=== PATIENT | male | born 1950 | race Caucasian/White ===

== ENCOUNTER 2016-10-23 00:39 | Emergency (ER) | payer MEDICARE, OTHER ==
[~2016-10-23] VITALS: Ht 180.3 cm; Wt 93.6 kg
[~2016-10-23 00:39] MED LIST: ASPIRIN EC81 MG PO; AZELASTINE; BUMETANIDE1 MG PO; COLCHICINE0.6 M2 PO; COREG6.25 MG PO; CYMBALTA60 MG PO; DELTASONE20 MG PO; DOC-Q-LAX1 TAB PO; DOXAZOSIN4 MG PO; FLEXERIL PO; FLUTICASONE50 MCG; HYDROXYCHLOR200 MG PO; LEVOTHYROXIN50 MCG PO; LIDODERM5 % EX; LISINOPRIL20 MG PO; LORATADINE10 M1 PO; LOSARTAN POTASS50 MG PO; MOTRIN400 MG/TAB PO; NAPROSYN500 MG PO; OMEPRAZOLE20 MG PO; ORENCIA125 MG/ML SC; PRAVASTATIN20 MG PO; PREDNISONE10 MG PO; PROAIR HFA IN; RESTASIS0.05 % OP; RESTORIL15 M1 PO; SYMBICORT1 AE1 IN; VICODIN1 TA1 PO; VITAMIN D50000 UNT PO; XANAX0.25 MG PO
[2016-10-23 02:37] LABS: HEMOGLOBIN 13.3 g/dl (14.0-18.0); IMMATURE GRANULOCYTES 0.1 % (0.0-1.0); MEAN CELL VOLUME 99.5 fL CALC (80.0-100.0); MEAN CORPUSCULAR HGB 33.9 pG CALC (26.0-32.0); MEAN CORPUSCULAR HGB CONC 34.1 g/L CALC (32.0-36.0); NEUT# 2.12 thou/uL (1.82-7.42); RED BLOOD COUNT 3.92 mill/uL (4.70-6.10); RED CELL DISTRI WIDTH 12.9 % (11.5-15.5)
[2016-10-23 02:47] LABS: ALBUMIN 3.7 g/dL (3.2-5.0); ALKALINE PHOSPHATASE 83 u/l (38-126); ANION GAP 14 (6-22 (CALC)); BILIRUBIN, TOTAL 0.4 mg/dL (0.0-1.4); BUN 16 mg/dL (8-23); BUN/CREATININE RATIO 27 (12-20 (CALC)); CALCIUM 9.5 mg/dL (8.4-10.2); CARBON DIOXIDE 27 mmol/l (22-30); CHLORIDE 101 mmol/l (95-108); CREATININE 0.6 mg/dL (0.7-1.3); GFR > 60 ML/MIN (>=60 (CALC)); GFR FOR AFR.AMER. > 60 ML/MIN (>=60 (CALC)); GLUCOSE 123 mg/dL (82-115); POTASSIUM 4.5 mmol/l (3.5-5.1); SGOT/AST 58 u/l (19-48); SGPT/ALT 61 u/l (11-66); SODIUM 137 mmol/l (137-146); TOTAL PROTEIN 6.5 g/dL (6.3-8.2)
[2016-10-23 04:23] LABS: URINE BILIRUBIN - DIPSTICK NEGATIVE (NEGATIVE); URINE BLOOD DIPSTICK NEGATIVE (NEGATIVE); URINE CLARITY CLEAR; URINE COLOR YELLOW; URINE GLUCOSE - DIPSTICK NEGATIVE (NEGATIVE); URINE KETONE NEGATIVE (NEGATIVE); URINE LEUK ESTERASE NEGATIVE (NEGATIVE); URINE NITRITE - DIPSTICK NEGATIVE (Negative); URINE PROTEIN - DIPSTICK NEGATIVE (NEG-TRACE); URINE SPECIFIC GRAVITY <=1.005; URINE UROBILINOGEN - DIPSTICK 0.2 E.U./dL (0.2)
[2016-10-23 07:10] VITALS: BP 124/61
== END 2016-10-23 07:11 ==
LOC: ED 00:39
PROVIDERS: Emergency Medicine
DX: R51 Headache (principal); J01.90 Acute sinusitis, unspecified; I10 Essential (primary) hypertension; E78.5 Hyperlipidemia, unspecified; J44.9 Chronic obstructive pulmonary disease, unspecified; I25.10 Atherosclerotic heart disease of native coronary artery without angina pectoris; I42.9 Cardiomyopathy, unspecified; Z98.890 Other specified postprocedural states

== ENCOUNTER 2017-04-05 21:17 | Emergency (ER) | payer MEDICARE, OTHER ==
[~2017-04-05] VITALS: Ht 180.3 cm; Wt 93.6 kg
[2017-04-05 21:37] VITALS: BP 171/87
== END 2017-04-05 21:45 | disposition home or self-care (01) ==
LOC: ED 21:17
PROC: 09C4XZZ Extirpation of Matter from Left External Auditory Canal, External Approach (ICD-10-PCS; principal; 2017-04-05)
DX: T16.2XXA Foreign body in left ear, initial encounter (principal); X58.XXXA Exposure to other specified factors, initial encounter; Y92.009 Unspecified place in unspecified non-institutional (private) residence as the place of occurrence of the external cause; H92.02 Otalgia, left ear

== ENCOUNTER 2018-03-04 17:42 | Inpatient (IN) | payer MEDICARE, OTHER ==
[~2018-03-04] VITALS: Ht 180.3 cm; Wt 87.7 kg
--- NOTE | 2018-03-04 17:56 | NUR ---
PATIENT IMMEDIATELY TO TREATMENT AREA AND PHYSICIAN AT BEDSIDE FOR EVAL
--- NOTE | 2018-03-04 18:10 | NUR ---
PT RELATES RT SIDED CHEST PAIN REPRODUCIBLE WITH PALPATION. VSS, IV FLUIDS INFUSING.
[2018-03-04 18:13] LABS: HEMATOCRIT 42.4 % (39.0-50.0); HEMOGLOBIN 14.4 g/dl (14.0-18.0); IMMATURE GRANULOCYTES 0.2 % (0.0-5.0); MEAN CELL VOLUME 102.7 fL CALC (80.0-100.0); MEAN CORPUSCULAR HGB 34.9 pG CALC (26.0-32.0); NEUT# 4.53 thou/uL (1.82-7.42); RED BLOOD COUNT 4.13 mill/uL (4.70-6.10); RED CELL DISTRI WIDTH 13.5 % (11.5-15.5)
--- NOTE | 2018-03-04 18:13 | NUR ---
PT ADAMENTLY REFUSING NITRO GTT AT THIS TIME D/T SEVERITY OF HYPOTENSION IN THE PAST.
--- NOTE | 2018-03-04 18:15 | NUR ---
PATIENT REFUSING NITRO DRIP
[2018-03-04 18:31] LABS: ANION GAP 13 (6-22 (CALC)); BUN 13 mg/dL (8-23); BUN/CREATININE RATIO 25 (12-20 (CALC)); CARBON DIOXIDE 28 mmol/l (22-30); CHLORIDE 99 mmol/l (95-108); CREATININE 0.5 mg/dL (0.7-1.3); GFR > 60 ML/MIN (>=60 (CALC)); GFR FOR AFR.AMER. > 60 ML/MIN (>=60 (CALC)); POTASSIUM 4.2 mmol/l (3.5-5.1); SODIUM 136 mmol/l (137-146)
--- NOTE | 2018-03-04 18:55 | NUR ---
REPORT TO ARTHUR CHAVEZRN
--- NOTE | 2018-03-04 19:13 | NUR ---
A/O M WITH FILTRATION SUPERVISOR ROSA COUGH X 1 WEEK RU CHEST PAINS EXAC BY COUGH W/P/D CLAIRE PUL;SES ARE STRONG AND EQUAL.
--- NOTE | 2018-03-04 19:48 | NUR ---
PHONE REPORT TO NURSE MARK
[2018-03-04 19:55] VITALS: BP 186/81
--- NOTE | 2018-03-04 19:55 | NUR ---
TO MS2 VIA STRETCHER ON TELE IN PAINFREE STABLE CONDITION
--- NOTE | 2018-03-04 19:55 | NUR ---
PT. ARRIVED TO THE FLOOR VIA STRETCHER ACCOMPANIED BY ER NURSE, AG, AND ; PT. SETTLED INTO BED WITH [place] PAINTER. B/P ELEVATED WITH SBP IN THE 180'S; WILL REASSESS; CALL LIGHT IS IN REACH.
--- NOTE | 2018-03-04 20:25 | NUR ---
ADMISSION COMPLETED AT THIS TIME; NO DISTRESS NOTED. DENIES PAIN; REASSESSED B/P 159/74; WILL CONTINUE TO MONITOR. IV SITE PATENT AND SL TO RAC; REVIEWED POC WITH PT; VERBALIZES UNDERSTANDING;LIST OF NIGHT TIME MEDS GIVEN TO THIS DIRECTOR PUBLIC SERVICE; WILL CALL MD FOR FURTHER ORDERS; SANDWICH AND PO FLUIDS PROVIDED; ENCOURAGED TO CALL FOR ANY NEEDS; CALL LIGHT IS IN REACH.
[2018-03-04 20:30] VITALS: BP 159/74
[2018-03-04 21:52] VITALS: BP 150/67
--- NOTE | 2018-03-04 21:52 | NUR ---
PT. C/O RIGHT SIDED CHEST PAIN 08/03; PT. DOES REPORT ALOT OF COUGHING AND INCREASE IN PAIN WITH COUGH AND INSPIRATION; VS OBTAINED AND B/P IS 150/67 AND HR 65; SPO2 94%; CALLED RT FOR STAT EKG AND PLACED ORDER FOR STAT TROPONIN;
--- NOTE | 2018-03-04 22:09 | NUR ---
NO CHANGE IN EKG; CALLED DR. CARR AND NOTIFIED HIM THAT PT. IS HAVING RIGHT SIDED CHEST PAIN AND THAT IT INCREASES WITH COUGH. ALSO NOTIFIED HIM OF C-XRAY RESULTS AND RECEIVED ORDERS FOR INCENTIVE SPIROMETER AND ONE TIME DOSE OF MORPHINE; WILL ADMINISTER WHEN PROFILED; UPDATED PT. AND .
--- NOTE | 2018-03-04 22:40 | NUR ---
PT. MEDICATED FOR A 6/10 RIGHT SIDED CHEST PAIN; WILL REASSESS;
--- NOTE | 2018-03-04 23:40 | NUR ---
PT. RESTING IN BED ON LEFT SIDE WITH EYES CLOSED; NO DISTRESS NOTED; RESP EVEN AND UNLABORED; CALL LIGHT IS IN REACH.
[2018-03-05 00:10] VITALS: BP 135/61
--- NOTE | 2018-03-05 01:42 | NUR ---
PT. C/O RIGHT SIDED PLEURAL/CHEST PAIN -09/02; CALLED DR. CARR AND NOTIFIED HIM OF THIS; NEW ORDERS RECEIVED AND TO BE CARRIED OUT;
--- NOTE | 2018-03-05 02:56 | NUR ---
PT. RESTING IN BED ON LEFT SIDE WITH EYES CLOSED; RESP EVEN AND UNLABORED; NO DISTRESS NOTED. CALL LIGHT IS IN REACH.
[2018-03-05 03:00] VITALS: BP 139/60
[2018-03-05 07:45] VITALS: BP 153/75
--- NOTE | 2018-03-05 07:59 | NUR ---
ASSESSMENT DONE .TELE IN PLACE. PT IS A&O X3. PT STATED DISCOMFORT IN RIGHT SIDE OF CHEST 03/05 BUT DENIES PAIN MEDICATION AT THIS TIME. PT HAS A COUGH. #20RAC THAT APPEARS HEALTHY. PT DENIES NEEDS AT THIS TIME. SAFETY PRECAUTIONS REINFORCED AND CALL LIGHT IN REACH.
[2018-03-05 11:28] VITALS: BP 130/74
--- NOTE | 2018-03-05 12:00 | NUR ---
PT IS EATING HIS LUNCH WITH NO S/S OF DISTRESS NOTED. PT STATED PIAN IN RIGHT SIDE CHEST IS / BUT DENIES PAIN MEDICATION AT THIS TIME. CALL LIGHT IN REACH.
[2018-03-05 15:20] VITALS: BP 151/76
--- NOTE | 2018-03-05 15:55 | NUR ---
PT IS SITTING IN THE SIDE OF THE BED VISITING WITH IN ROOM. MEDICATED PT WITH TYLENOL FOR A HEADACE 06/03. PT DENIES ANY OTHER NEEDS AT THIS TIME. CALL LIGHT IN REACH.
[2018-03-05 19:22] VITALS: BP 155/76
--- NOTE | 2018-03-05 21:48 | NUR ---
PT MEDICATED ORDERS PROVIDE AND ASSESSED. LUNG SOUNDS ARE CLEAR THROUGHOUT W/LEFT UPPER POST DIMINISHED/CLEAR SOUNDS. ABD SOFT NON-TENDER W/ACTIVE BOWEL SOUNDS. LOCX3, DENIES ANY PAIN/N/V OR SOB. CALL LIGHT AT BEDSIDE, WILL CONTINUE TO MONITOR.
[2018-03-06] VITALS (7 sets, daily range): BP systolic 136–185; BP diastolic 62–79
--- NOTE | 2018-03-06 01:20 | NUR ---
PT IN BED W/LIGHTS AND TV OFF. NO S/S OF DISTRESS, PT SLEEPING. CALL LIGHT IS AT SIDE.
--- NOTE | 2018-03-06 03:18 | NUR ---
PT APPEARS TO BE SLEEPING AT THIS TIME. NO S/O DISTRESS NOTED. CALL LIGHT AT SIDE.
[2018-03-06 05:11] LABS: HEMATOCRIT 39.3 % (39.0-50.0); HEMOGLOBIN 13.6 g/dl (14.0-18.0); IMMATURE GRANULOCYTES 0.3 % (0.0-5.0); MEAN CORPUSCULAR HGB CONC 34.6 g/L CALC (32.0-36.0); NEUT# 4.79 thou/uL (1.82-7.42); RED BLOOD COUNT 3.89 mill/uL (4.70-6.10); RED CELL DISTRI WIDTH 13.5 % (11.5-15.5)
[2018-03-06 05:32] LABS: ALKALINE PHOSPHATASE 104 u/l (38-126); AMYLASE < 30 u/l (30-110); ANION GAP 9 (6-22 (CALC)); BILIRUBIN, TOTAL 0.9 mg/dL (0.0-1.4); BUN 12 mg/dL (8-23); BUN/CREATININE RATIO 24 (12-20 (CALC)); CARBON DIOXIDE 26 mmol/l (22-30); CHLORIDE 106 mmol/l (95-108); CREATININE 0.5 mg/dL (0.7-1.3); GFR > 60 ML/MIN (>=60 (CALC)); GFR FOR AFR.AMER. > 60 ML/MIN (>=60 (CALC)); LIPASE 43 u/l (23-300); POTASSIUM 4.2 mmol/l (3.5-5.1); SGOT/AST 81 u/l (19-48); SODIUM 137 mmol/l (137-146)
[2018-03-06 05:34] LABS: ALBUMIN 2.7 g/dL (3.2-5.0); TOTAL PROTEIN 5.3 g/dL (6.3-8.2)
--- NOTE | 2018-03-06 08:00 | NUR ---
ASSESSMENT DONE. TELE IN PLACE. LUNGS SOUND DIMINISHED. PT IS A&O X3. PT DENIES PAIN AT THIS TIME. #22 RAC THAT APPEARS HEALTHY. SAFETY PRECAUTIONS REINFORCED AND CALL LIGHT IN REACH.
--- NOTE | 2018-03-06 12:00 | NUR ---
PT IS EATING HIS LUNCH WITH NO S/S OF DISTRESS NOTED. TELE IN PLACE. CALL LIGHT IN REACH.
--- NOTE | 2018-03-06 16:00 | NUR ---
PT IS RESTING ON HIS RIGHT SIDE. PT DENIES ANY NEEDS AT THIS TIME. CALL LIGHT IN REACH. IN ROOM. CALL LIGHT IN REACH.
--- NOTE | 2018-03-06 20:11 | NUR ---
PT MEDICATED ORDERS PROVIDE AND FOR PAIN /10 IN LUNG AREA. PT MEDICATED FOR COUGH AND ELEVATED BP AT THIS TIME. WILL REASSESS FOR PAIN AND BP. LUNG SOUNDS ARE CLEAR/DIM L.UPPER LOBE, ABD FIRM NON-TENDER W/ACTIVE BOWEL SOUNDS, TRACE EDEMA TO LOWER LEGS BILAT, SKIN APPEARS INTACT, NO OTHER S/O DISTRESS NOTED. WILL CONTINUE TO MONITOR AND PT ENCROUAGED TO CALL IF ANY NEEDS ARISE. CALL LIGHT AT BEDSIDE.
--- NOTE | 2018-03-06 23:30 | NUR ---
PT CALLED REQUESTED SLEEP AIDE/REPORTS HAVING DIFFICULTY SLEEPING/MEDICATED ORDERS PROVIDE. PT REPORTS PAIN AND COUGH RELIEF W/ROBITUSSIN AND PAIN MEDICATION PREVIOUSLY ADMINISTERED. PT DENIES ANY OTHER NEED FOR COMFORT MEASURES/ROOM TURNED COOLER/REQUEST. WILL CONTINUE TO MONITOR, AIDE IN OBTAINING V/S AT THIS TIME. CALL LIGHT AT BEDSIDE.
--- NOTE | 2018-03-07 02:25 | NUR ---
PT APPEARS TO BE SLEEPING, NO S/S OF DISTRESS NOTED. ROOM IS DARK,TV OFF AND CALL LIGHT AT BEDSIDE.
[2018-03-07 05:06] VITALS: BP 148/71
[2018-03-07 05:30] LABS: HEMATOCRIT 37.6 % (39.0-50.0); HEMOGLOBIN 12.9 g/dl (14.0-18.0); IMMATURE GRANULOCYTES 0.2 % (0.0-5.0); MEAN CELL VOLUME 100.8 fL CALC (80.0-100.0); MEAN CORPUSCULAR HGB 34.6 pG CALC (26.0-32.0); MEAN CORPUSCULAR HGB CONC 34.3 g/L CALC (32.0-36.0); NEUT# 3.96 thou/uL (1.82-7.42); RED BLOOD COUNT 3.73 mill/uL (4.70-6.10); RED CELL DISTRI WIDTH 13.2 % (11.5-15.5)
[2018-03-07 05:48] LABS: ALBUMIN 2.6 g/dL (3.2-5.0); ALKALINE PHOSPHATASE 92 u/l (38-126); ANION GAP 11 (6-22 (CALC)); BILIRUBIN, TOTAL 0.7 mg/dL (0.0-1.4); BUN 6 mg/dL (8-23); BUN/CREATININE RATIO 13 (12-20 (CALC)); CARBON DIOXIDE 24 mmol/l (22-30); CHLORIDE 106 mmol/l (95-108); CREATININE 0.4 mg/dL (0.7-1.3); GFR > 60 ML/MIN (>=60 (CALC)); GFR FOR AFR.AMER. > 60 ML/MIN (>=60 (CALC)); MAGNESIUM 1.9 mg/dL (1.6-2.3); POTASSIUM 4.1 mmol/l (3.5-5.1); SGOT/AST 45 u/l (19-48); SODIUM 136 mmol/l (137-146); TOTAL PROTEIN 5.2 g/dL (6.3-8.2)
[2018-03-07 08:00] VITALS: BP 125/67
--- NOTE | 2018-03-07 08:39 | NUR ---
PT IS SITTING IN RECLINER. ASSESSMENT DONE. TELE IN PLACE. PT DENIES PAIN AT THIS TIME. #22 RW THAT APPEAR HEALTHY. SAFETY PRECAUTIONS REINFORCED AND CALL LIGHT IN REACH.
[2018-03-07 10:51] LABS: URINE BILIRUBIN - DIPSTICK NEGATIVE (NEGATIVE); URINE BLOOD DIPSTICK NEGATIVE (NEGATIVE); URINE COLOR YELLOW; URINE GLUCOSE - DIPSTICK NEGATIVE (NEGATIVE); URINE KETONE NEGATIVE (NEGATIVE); URINE LEUK ESTERASE NEGATIVE (NEGATIVE); URINE NITRITE - DIPSTICK NEGATIVE (Negative); URINE PH 5.5 (4.5-8.0); URINE PROTEIN - DIPSTICK NEGATIVE (NEG-TRACE); URINE SPECIFIC GRAVITY <=1.005; URINE UROBILINOGEN - DIPSTICK 0.2 E.U./dL (0.2)
[2018-03-07 11:28] VITALS: BP 166/82
--- NOTE | 2018-03-07 12:07 | NUR ---
PT IS SITTING IN THE RECLINER. DR. CARMONA IN ROOM TO ASSESS PT. NOTIFIED RE: P-51 AND BP 166/82 . IN ROOM. CALL LIGHT IN REACH.
[2018-03-07 15:06] VITALS: BP 123/66
--- NOTE | 2018-03-07 16:04 | NUR ---
PT IS RESTING IN RECLINER WITH NO S/S OF DISTRESS NOTED. TELE IN PLACE AND CALL LIGHT IN REACH.
[2018-03-07 19:35] VITALS: BP 154/83
--- NOTE | 2018-03-07 19:50 | NUR ---
PT WAS IN RECLINER, NO S/O DISTRESS NOTED, PT DENIES PAIN OR COUGH AT THIS TIME. DENIES SOB. PT SWABBED FOR FLU AND STREP AND ASSESSMENT COMPLETED AT THIS TIME. LUNG SOUNDS CLEAR/DIM IN RUL, ABD SOFT NON-TENDER, LOCX4, SKIN AND NEURO'S INTACT. PT DENIES ANY OTHER ASSISTANCE AT THIS TIME. CALL LIGHT AT SIDE AND PT ENCOURAGED TO CALL ANY NEEDS ARISE.
[2018-03-08] VITALS (9 sets, daily range): BP systolic 133–187; BP diastolic 69–83
--- NOTE | 2018-03-08 00:15 | NUR ---
PT WAS SLEEPING WE ENTERED THE ROOM. PT ASSISTED TO RESTROOM AND BACK TO BED. NO S/O DISTRESS, PT DENIES ANY NEEDS. V/S ASSESSED AND ANTIBIOTIC IV THERAPY ADMINISTERED. CALL LIGHT AT BEDSIDE.
--- NOTE | 2018-03-08 03:55 | NUR ---
PT MEDICATED FOR COUGH AND IV SITE FLUSHED/PATENT/APPEARS HEALTHY. PT DENIES ANY OTHER NEEDS AT THIS TIME. CALL LIGHT AT BEDSIDE.
--- NOTE | 2018-03-08 07:00 | NUR ---
SHIFT REPORT, PT AWAKE ALERT AND ORIENTED, NO C/O DISCOMFORT, REQUESTING DOUBLE MEAL AND FRUIT SERVING, REQUEST ADDRESSED, WILL CONTINUE TO MONITOR.
--- NOTE | 2018-03-08 12:49 | NUR ---
RELAXING IN ROOM, MEDICAL TEAM ROUNDED AND DISCUSSED PLAN OF CARE, ALL NEEDS ADDRESSED.
--- NOTE | 2018-03-08 16:51 | NUR ---
SLEEPING IN BED AT THIS TIME, NO SIGN DISCOMFORT, CALL ARREAGA IN REACH.
--- NOTE | 2018-03-08 18:17 | NUR ---
MESSAGE LEFT ON DR CARMONA'S PHONE CONCERNING PT'S BP
--- NOTE | 2018-03-08 18:31 | NUR ---
DR CARMONA RETURNED CALL, GAVE ORDERS.
--- NOTE | 2018-03-08 19:30 | NUR ---
PT IS STANDING IN ROOM, JUST COMING FROM RESTROOM. POC DISCUSSED W/PT, NO S/O DISTRESS NOTED. CALL LIGHT AT BEDSIDE AND PT ENCOURAGED TO CALL IF ANY NEEDS ARISE.
--- NOTE | 2018-03-08 21:00 | NUR ---
PHYSICIAN NOTIFIED OF LOW HR AND ELEVATED BP, NEW ORDERS RECEIVED.
--- NOTE | 2018-03-09 | NUR ---
PT MEDICATED W/IV ANTIBIOTICS AND SOMETHING TO AIDE SLEEP/REQUEST. V/S HAVE BEEN ASSESSED PRIOR. WATER REPLENISHED, PT DENIES ANY OTHER NEEDS AT THIS TIME.
--- NOTE | 2018-03-09 03:12 | NUR ---
PT SLEEPING AT THIS TIME, NO S/O DISTRESS NOTED. CALL LIGHT W/IN REACH.
[2018-03-09 04:58] VITALS: BP 132/65
--- NOTE | 2018-03-09 05:59 | NUR ---
PT MEDICATED ORDERS PROVIDE, IV ANTIBIOTIC THERAPY RUNNING AT THIS TIME/SITE APPEARS HEALTHY. PT MEDICATED FOR COUGH AND RESPIRATORY IS IN W/PT FOR TREATMENT. DENIES ANY OTHER NEEDS.
[2018-03-09 06:00] LABS: HEMOGLOBIN 13.1 g/dl (14.0-18.0); IMMATURE GRANULOCYTES 0.2 % (0.0-5.0); MEAN CELL VOLUME 101.3 fL CALC (80.0-100.0); MEAN CORPUSCULAR HGB 34.9 pG CALC (26.0-32.0); MEAN CORPUSCULAR HGB CONC 34.5 g/L CALC (32.0-36.0); NEUT# 1.64 thou/uL (1.82-7.42); RED BLOOD COUNT 3.75 mill/uL (4.70-6.10); RED CELL DISTRI WIDTH 13.2 % (11.5-15.5)
[2018-03-09 06:17] LABS: ANION GAP 11 (6-22 (CALC)); BUN 8 mg/dL (8-23); BUN/CREATININE RATIO 17 (12-20 (CALC)); CARBON DIOXIDE 25 mmol/l (22-30); CHLORIDE 108 mmol/l (95-108); CREATININE 0.5 mg/dL (0.7-1.3); GFR > 60 ML/MIN (>=60 (CALC)); GFR FOR AFR.AMER. > 60 ML/MIN (>=60 (CALC)); MAGNESIUM 1.8 mg/dL (1.6-2.3); POTASSIUM 3.9 mmol/l (3.5-5.1); SODIUM 140 mmol/l (137-146)
--- NOTE | 2018-03-09 07:00 | NUR ---
Received report from nurse Costa pt sitting in bed, no discmoforts noted at this time, even unlabored breathing call light at reach
[2018-03-09 07:30] VITALS: BP 155/73
--- NOTE | 2018-03-09 08:00 | NUR ---
PATIENT ALERT AND ORIENTED, AMULATORY, DENIES PAIN OR DISCOMFORT AT THIS TIME, OCCASIONAL COUGHING SPUTUM GREENISH IN COLOR STATED BY PATIENT. EVEN UNLABORED BREATHING CALL LIGHT AT REACH
[2018-03-09 11:25] VITALS: BP 159/76
--- NOTE | 2018-03-09 11:50 | NUR ---
Seen on rounds by , orders made for discharge, pt with family, denies pain. call light within reach
[2018-03-09] MEDS ORDERED: CIPROFLOXACIN500 M1 PO (13:07)
[2018-03-09] MEDS ORDERED: TUSSIONEX1 ML PO (13:07)
--- NOTE | 2018-03-09 14:45 | NUR ---
Discharge instructions given. Patient verbalizes understanding of same. Discharged in stable condition via Wheelchair to Home with family. All belongings sent with pt.
== END 2018-03-09 14:45 | disposition home or self-care (01) | DRG 178 ==
LOC: ED 17:42 → ED-I 17:50 → ED 19:13 → MS2 19:14
PROVIDERS: Family Medicine; Internal Medicine Nephrology; Nurse Practitioner Family; ADMIT Internal Medicine; ATTEND Internal Medicine
DX: J15.1 Pneumonia due to Pseudomonas (principal); I51.81 Takotsubo syndrome; I10 Essential (primary) hypertension; M06.9 Rheumatoid arthritis, unspecified; M35.00 Sjogren syndrome, unspecified; I25.10 Atherosclerotic heart disease of native coronary artery without angina pectoris; I44.7 Left bundle-branch block, unspecified; E89.0 Postprocedural hypothyroidism; R91.8 Other nonspecific abnormal finding of lung field; Z86.711 Personal history of pulmonary embolism; Z90.411 Acquired partial absence of pancreas; Z90.81 Acquired absence of spleen; Z79.899 Other long term (current) drug therapy
CPT/HCPCS: G0378; J1650

== ENCOUNTER → 2018-05-13 | Outpatient (REF) | payer MEDICARE, OTHER ==
[~2018-05-13] MED LIST changes: +CIPROFLOXACIN500 M1 PO; +MONTELUKAST SOD10 MG PO; +TUSSIONEX1 ML PO
[2018-05-13 10:53] VITALS: BP 143/43
== END ==
LOC: FIORUCCI 10:15
PROVIDERS: ATTEND Surgery
DX: K21.9 Gastro-esophageal reflux disease without esophagitis (principal); Z86.010 Personal history of colon polyps

== ENCOUNTER 2018-06-02 07:45 | Day surgery (SDC) | payer MEDICARE, OTHER ==
[~2018-06-02 07:45] MED LIST changes: +ALLERGY NA50 MCG/ACT; +AZELASTINE0.1 %; -FLUTICASONE50 MCG; +MITIGARE0.6 MG PO
[2018-06-04 10:24] VITALS: BP 148/85
== END 2018-06-02 10:50 | disposition home or self-care (01) ==
LOC: ENDO 07:45 → ORM 09:00 → ENDO 10:50
PROVIDERS: ATTEND Surgery
PROC: 0DBK8ZX Excision of Ascending Colon, Via Natural or Artificial Opening Endoscopic, Diagnostic (ICD-10-PCS; principal; 2018-06-02)
PROC: 0DBN8ZX Excision of Sigmoid Colon, Via Natural or Artificial Opening Endoscopic, Diagnostic (ICD-10-PCS; 2018-06-02)
PROC: 0DBH8ZX Excision of Cecum, Via Natural or Artificial Opening Endoscopic, Diagnostic (ICD-10-PCS; 2018-06-02)
PROC: 0DJ08ZZ Inspection of Upper Intestinal Tract, Via Natural or Artificial Opening Endoscopic (ICD-10-PCS; 2018-06-02)
DX: Z12.11 Encounter for screening for malignant neoplasm of colon (principal); D12.0 Benign neoplasm of cecum; D12.2 Benign neoplasm of ascending colon; D12.5 Benign neoplasm of sigmoid colon; K63.5 Polyp of colon; K64.8 Other hemorrhoids; K64.4 Residual hemorrhoidal skin tags; K21.9 Gastro-esophageal reflux disease without esophagitis; K29.70 Gastritis, unspecified, without bleeding; K29.80 Duodenitis without bleeding; M35.00 Sjogren syndrome, unspecified; I10 Essential (primary) hypertension; M06.9 Rheumatoid arthritis, unspecified; I42.9 Cardiomyopathy, unspecified; Z86.010 Personal history of colon polyps; Z79.899 Other long term (current) drug therapy

== ENCOUNTER 2018-10-20 19:33 | Emergency (ER) | payer MEDICARE, OTHER ==
[~2018-10-20] VITALS: Ht 180.3 cm; Wt 84.5 kg
[~2018-10-20 19:33] MED LIST changes: +PREVACID30 M3 PO
[2018-10-20] MEDS ORDERED: PROTONIX40 M2 PO (20:00)
[2018-10-20] MEDS ORDERED: CARAFATE1 GM PO (20:01)
[2018-10-20 21:00] VITALS: BP 170/78
== END 2018-10-20 21:00 | disposition home or self-care (01) ==
LOC: ED 19:33
DX: T16.1XXA Foreign body in right ear, initial encounter (principal); X58.XXXA Exposure to other specified factors, initial encounter; Y92.009 Unspecified place in unspecified non-institutional (private) residence as the place of occurrence of the external cause

== ENCOUNTER 2019-06-21 | Emergency (ER) | payer MEDICARE, OTHER ==
[~2019-06-21] MED LIST changes: +CARAFATE1 GM PO; +COREG3.125 MG PO; -COREG6.25 MG PO; +LEVOTHYROXIN150 MCG PO; -LEVOTHYROXIN50 MCG PO; +PROTONIX40 M2 PO
[2019-06-21 15:38] LABS: HEMATOCRIT 42.1 % (39.0-50.0); HEMOGLOBIN 14.3 g/dl (14.0-18.0); IMMATURE GRANULOCYTES 0.1 % (0.0-5.0); MEAN CELL VOLUME 96.3 fL CALC (80.0-100.0); MEAN CORPUSCULAR HGB 32.7 pG CALC (26.0-32.0); NEUT# 2.3 thou/uL (1.82-7.42); RED BLOOD COUNT 4.37 mill/uL (4.70-6.10); RED CELL DISTRI WIDTH 13.9 % (11.5-15.5)
[2019-06-21] MEDS ORDERED: PANTOPRAZOLE SO20 M1 PO (15:38)
[2019-06-21] MEDS ORDERED: LEVOTHYROXIN50 MCG PO (15:45)
[2019-06-21 16:03] LABS: ALBUMIN 3.8 g/dL (3.2-5.0); ALKALINE PHOSPHATASE 62 u/l (38-126); ANION GAP 10 (6-22 (CALC)); BILIRUBIN, TOTAL 0.6 mg/dL (0.0-1.4); BUN 16 mg/dL (8-23); BUN/CREATININE RATIO 32 (12-20 (CALC)); CARBON DIOXIDE 27 mmol/l (22-30); CHLORIDE 103 mmol/l (95-108); CREATININE 0.5 mg/dL (0.7-1.3); GFR > 60 ML/MIN (>=60 (CALC)); GFR FOR AFR.AMER. > 60 ML/MIN (>=60 (CALC)); SGOT/AST 48 u/l (19-48); SODIUM 135 mmol/l (137-146); TOTAL PROTEIN 6.7 g/dL (6.3-8.2)
[2019-06-21 16:07] LABS: ACT PARTIAL THROMBO TIME 24.7 SECONDS (20.0-32.5); INTERNATIONAL NORMALIZED RATIO 1.1 RATIO (0.7-1.3); PROTHROMBIN TIME 11.2 SECONDS (9.0-12.5)
[2019-06-21] MEDS ORDERED: TRAMADOL HYDROC50 MG PO (17:11)
[2019-06-21] MEDS ORDERED: ONDANSETRON4 MG PO (17:11)
== END 2019-06-21 17:25 | disposition home or self-care (01) ==
DX: G43.909 Migraine, unspecified, not intractable, without status migrainosus (principal); I10 Essential (primary) hypertension

== ENCOUNTER 2019-08-01 23:02 | Observation (INO) | payer MEDICARE, OTHER ==
[~2019-08-01] VITALS: Ht 180.3 cm; Wt 88.5 kg
[~2019-08-01 23:02] MED LIST changes: +LEVOTHYROXIN50 MCG PO; +ONDANSETRON4 MG PO; +PANTOPRAZOLE SO20 M1 PO; +TRAMADOL HYDROC50 MG PO
--- NOTE | 2019-08-01 23:02 | NUR ---
PATIENT TO ROOM 10 VIA EMS STRETCHER. PLACED ON MONITOR, TRIAGE COMPLETED AT BEDSIDE.
[2019-08-01] MEDS ORDERED: TOPIRAMATE ER25 MG PO (23:24)
[2019-08-01] MEDS ORDERED: PROMETHAZINE12.5 M4 PO (23:24)
--- NOTE | 2019-08-01 23:32 | NUR ---
PATIENT RESTING QITH AT BEDSIDE, C/O LEFT CHEST PAIN 4/10 AND HEAD PAIN 8/10, PATIENT MEDICATED FOR ELEVATED BLOOD PRESSURE, NO S/S OF DISTRESS, RESPIRATIONS EVEN AND UNLABORED.
[2019-08-01 23:38] LABS: HEMATOCRIT 42.6 % (39.0-50.0); HEMOGLOBIN 14.5 g/dl (14.0-18.0); IMMATURE GRANULOCYTES 0.1 % (0.0-5.0); MEAN CELL VOLUME 96.6 fL CALC (80.0-100.0); MEAN CORPUSCULAR HGB 32.9 pG CALC (26.0-32.0); NEUT# 2.7 thou/uL (1.82-7.42); RED BLOOD COUNT 4.41 mill/uL (4.70-6.10); RED CELL DISTRI WIDTH 14.4 % (11.5-15.5)
[2019-08-01 23:50] LABS: ALBUMIN 3.8 g/dL (3.2-5.0); ALKALINE PHOSPHATASE 67 u/l (38-126); AMYLASE 58 u/l (30-110); BILIRUBIN, TOTAL 0.4 mg/dL (0.0-1.4); BUN 14 mg/dL (8-23); BUN/CREATININE RATIO 33 (12-20 (CALC)); CARBON DIOXIDE 27 mmol/l (22-30); CHLORIDE 102 mmol/l (95-108); CREATININE 0.4 mg/dL (0.7-1.3); GFR > 60 ML/MIN (>=60 (CALC)); GFR FOR AFR.AMER. > 60 ML/MIN (>=60 (CALC)); LIPASE 62 u/l (23-300); SGOT/AST 43 u/l (19-48); SODIUM 136 mmol/l (137-146); TOTAL PROTEIN 6.8 g/dL (6.3-8.2)
[2019-08-01 23:51] LABS: ANION GAP 10 (6-22 (CALC)); POTASSIUM 3.1 mmol/l (3.5-5.1)
[2019-08-01 23:57] LABS: ACT PARTIAL THROMBO TIME 24.7 SECONDS (20.0-32.5); D-DIMER 0.45 mg/L (0.19-0.60); PROTHROMBIN TIME 10.7 SECONDS (9.0-12.5)
[2019-08-02 00:02] LABS: MYOGLOBIN 143 ng/mL (0 - 121)
--- NOTE | 2019-08-02 00:17 | NUR ---
Patient resting quietly, c/o chest pain (4) and head pain (8). patient medicated for elevated blood pressure, at bedside.
--- NOTE | 2019-08-02 00:46 | NUR ---
patient awaiting inpatient bed, resting quietly, AT BEDSIDE.
--- NOTE | 2019-08-02 00:56 | NUR ---
PATIENT PLACED ON PORTABLE NAVY DIVER
--- NOTE | 2019-08-02 01:01 | NUR ---
HAND OFF REPORT GIVEN TO JOANNA PATTERSON PATIENT TRANSPORTED TO INPATIENT BED BY WHEELCHAIR. AAOX3 ON PORTABLE TELE.
--- NOTE | 2019-08-02 01:20 | NUR ---
PT ARRIVED TO THE MED SURG UNIT VIA WC ACCOMPANIED BY ED NURSE. PT APPEARS STABLE AT THIS TIME. DENIES PAIN AT THIS TIME. PT SELF AMBULATED TO STANDING SCALE AND TO THE BED. V/S ASSESSED AND PT ORIENTED TO THE ROOM, CALL SYSTEM, LIGHTS, BED AND TV.
[2019-08-02 01:24] VITALS: BP 172/75
--- NOTE | 2019-08-02 01:37 | NUR ---
ASSESSMENT COMPLETED AT THIS TIME. PT DENIES CP/N/V OR DIZZINESS. SKIN INTACT, NEURO'S INTACT. LOCX4. NO S/O DISTRESS NOTED. PT ORIENTED TO CALL LIGHT, TV AND BED. PT PROVIDED SNACK AND ICEWATER FOR COMFORT MEASURES. DENIES ANY OTHER NEEDS. POC HAS BEEN REVIEWED W/PT.
--- NOTE | 2019-08-02 01:58 | NUR ---
PT MEDICATED ORDERS PROVIDE W/LOVONOX. PT TOLERATED WELL. LOOKING AT CELLPHONE W/LIGHTS ON.
[2019-08-02 02:23] VITALS: BP 144/65
[2019-08-02 03:44] VITALS: BP 157/72
[2019-08-02 04:58] LABS: CHOLESTEROL HDL RATIO 3.7 (<4.4 (CALC))
--- NOTE | 2019-08-02 07:00 | NUR ---
REPORT RECEIVED FROM JOANNA PATTERSON;PT APPEARS TO BE SLEEPING IN SUPINE POSITION;NO S/S OF DISTRESS NOTED;RESPIRATIONS APPEAR EVEN AND UNLABORED ON RA;TELE MONITORING IN PLACE;ALL SAFETY PRECAUTIONS NOTED WITH BED IN THE LOWEST POSITION AND CALL LIGHT IN REACH;WILL CONTINUE TO MONITOR
[2019-08-02 08:08] VITALS: BP 155/81
--- NOTE | 2019-08-02 08:10 | NUR ---
PT RESTING IN SEMI FOWLERS POSITION EATING BREAKFAST,A&O X3;VS OBTAINED AND ASSESSMENT COMPLETED;PT REPORTS HEADACHE PAIN RATING 7/10 ON THE PAIN SCALE WITH ASSOCIATED NAUSEA, PT TO BE MEDICATED WITH PRN TYLENOL 650MG PO AND ZOFRAN 4MG IVP PER ORDER;RESPIRATIONS EVEN AND UNLABORED ON RA,CLEAR LUNG SOUNDS;ABDOMEN SOFT ON PALPATION AND ACTIVE IN ALL 4 QUADRANTS, PT REPORTS INCREASE IN CONSTIPATION AND REQUEST LAXATIVE LAST BM 08/01/19;PT TO BE MEDICATED WITH PRN MOM;TRACE EDEMA NOTED TO BLE,ENCOURAGED ELEVATION;EMS #20G TO RIGHT HAND FLUSHED AND PATENT,SITE APPEARS HEALTHY;TELE MONITORING IN PLACE;FRESH WATER PROVIDED;PT DENIES ANY ADDITIONAL NEEDS AT THIS TIME AND IS ENCOURAGED TO CALL FOR ASSISTANCE IF NEEDED;CALL LIGHT IN REACH;WILL CONTINUE TO MONITOR
--- NOTE | 2019-08-02 08:40 | NUR ---
LAB AT BEDSIDE
[2019-08-02 11:15] VITALS: BP 148/75
--- NOTE | 2019-08-02 11:20 | NUR ---
ALL DISCHARGE INSTRUCTIONS PROVIDED AT THIS TIME;PT INSTRUCTED TO F/U WITH AND HIS NEUROLOGIST,MONITOR BLOOD PRESSURE AND DECREASE NORTRIPTYLINE DOSE,PT AND SPOUSE VERBALIZE UNDERSTANDING;IV SITE REMOVED WITH CATHTETER INTACT AND TELE MONITORING D/C;PT DENIES ANY ADDITIONAL NEEDS AT THIS TIME;WHEELCHAIR TO BE PROVIDED FOR D/C HOME;SPOUSE TO TRANSPORT PT HOME.
--- NOTE | 2019-08-02 11:30 | NUR ---
Discharge instructions given. Patient verbalizes understanding of same. Discharged in stable condition via Wheelchair to Home with spouse. All belongings sent with pt. PT TRANSPORTED TO [facility] IN STABLE CONDITION VIA WHEELCHAIR ACCOMPANIED BY ABELARDO FARRIS AND SPOUSE.
== END 2019-08-02 11:30 | disposition home or self-care (01) ==
LOC: ED 23:02 → ED-I 08-02 00:17 → ED 08-02 00:30 → ED-I 08-02 00:31 → MS2 08-02 00:31
PROVIDERS: Family Medicine; ADMIT Internal Medicine; ATTEND Internal Medicine
DX: R07.9 Chest pain, unspecified (principal); I10 Essential (primary) hypertension; G43.909 Migraine, unspecified, not intractable, without status migrainosus; E87.6 Hypokalemia; I51.81 Takotsubo syndrome; I44.7 Left bundle-branch block, unspecified; M06.9 Rheumatoid arthritis, unspecified; E03.9 Hypothyroidism, unspecified; Z20.828 Contact with and (suspected) exposure to other viral communicable diseases
CPT/HCPCS: G0378; J1650

== ENCOUNTER 2019-08-08 07:14 | Inpatient (IN) | payer MEDICARE, OTHER ==
[~2019-08-08] VITALS: Ht 180.3 cm; Wt 89.0 kg
[~2019-08-08 07:14] MED LIST changes: +PROMETHAZINE12.5 M4 PO; +TOPIRAMATE ER25 MG PO
--- NOTE | 2019-08-08 07:15 | NUR ---
PT AMBULATED TO ROOM WITH STEADY GAIT FOR BEDSIDE TRIAGE
--- NOTE | 2019-08-08 07:25 | NUR ---
PT CHANGED TO GOWN. MONITORS APPLIED. AO X 3. SKIN PINK WARM AND DRY. REPORTS ABDOMINAL PAIN AND BLOATING SINCE THRURS, WORSE TODAY. ABD DISTENDED AND TENDER, ACTIVE BOWEL SOUNDS.
[2019-08-08 07:57] LABS: HEMATOCRIT 40.8 % (39.0-50.0); IMMATURE GRANULOCYTES 0.3 % (0.0-5.0); MEAN CELL VOLUME 97.1 fL CALC (80.0-100.0); MEAN CORPUSCULAR HGB 33.3 pG CALC (26.0-32.0); MEAN CORPUSCULAR HGB CONC 34.3 g/dL CAL (32.0-36.0); NEUT# 3.77 thou/uL (1.82-7.42); RED BLOOD COUNT 4.2 mill/uL (4.70-6.10); RED CELL DISTRI WIDTH 14.2 % (11.5-15.5)
[2019-08-08] MEDS ORDERED: TOPAMAX25 MG PO (07:58)
[2019-08-08] MEDS ORDERED: VALPROIC ACD250 M3 PO (07:58)
[2019-08-08] MEDS ORDERED: POTASSIUM CHLO10 MEQ PO (07:59)
[2019-08-08] MEDS ORDERED: KETOROLAC10 MG PO (08:00)
--- NOTE | 2019-08-08 08:18 | NUR ---
PT MEDICATED FOR PAIN, NAUSEA AND PROPHYLACTIC MEDS FOR IV CONTRAST GIVEN. IV INFUSING
[2019-08-08 08:22] LABS: ALBUMIN 3.8 g/dL (3.2-5.0); ALKALINE PHOSPHATASE 69 u/l (38-126); AMYLASE 55 u/l (30-110); ANION GAP 10 (6-22 (CALC)); BILIRUBIN, TOTAL 0.8 mg/dL (0.0-1.4); BUN 14 mg/dL (8-23); BUN/CREATININE RATIO 26 (12-20 (CALC)); CARBON DIOXIDE 27 mmol/l (22-30); CHLORIDE 102 mmol/l (95-108); CREATININE 0.5 mg/dL (0.7-1.3); GFR > 60 ML/MIN (>=60 (CALC)); GFR FOR AFR.AMER. > 60 ML/MIN (>=60 (CALC)); LIPASE 37 u/l (23-300); POTASSIUM 3.9 mmol/l (3.5-5.1); SGOT/AST 35 u/l (19-48); SODIUM 135 mmol/l (137-146)
--- NOTE | 2019-08-08 08:55 | NUR ---
PT RESTING ON STRETCHER. AT BEDSIDE. PAIN3/10
[2019-08-08 09:30] LABS: URINE BILIRUBIN - DIPSTICK NEGATIVE (NEGATIVE); URINE BLOOD DIPSTICK NEGATIVE (NEGATIVE); URINE COLOR YELLOW; URINE GLUCOSE - DIPSTICK NEGATIVE (NEGATIVE); URINE KETONE NEGATIVE (NEGATIVE); URINE LEUK ESTERASE NEGATIVE (NEGATIVE); URINE NITRITE - DIPSTICK NEGATIVE (Negative); URINE PROTEIN - DIPSTICK NEGATIVE (NEG-TRACE); URINE SPECIFIC GRAVITY <=1.005; URINE UROBILINOGEN - DIPSTICK 0.2 E.U./dL (0.2)
--- NOTE | 2019-08-08 09:56 | NUR ---
PT RESTING ON STRETCHER AWAITING RESULTS
--- NOTE | 2019-08-08 11:00 | NUR ---
PT RESTING ON STRETCHER, AT BEDSIDE. WAITING RESULTS
--- NOTE | 2019-08-08 12:06 | NUR ---
MED SURG UNABLE TO TAKE REPORT AT THIS TIME
--- NOTE | 2019-08-08 12:30 | NUR ---
REPORT GIVEN TO DORETHA MARSHALLOVEREDGE MACHINE OPERATOR
--- NOTE | 2019-08-08 12:35 | NUR ---
PT TAKEN VIA WHEELCHAIR, TELEMETRY IN PLACE TO MED SURG
--- NOTE | 2019-08-08 12:37 | NUR ---
PT ARRIVED TO MS2 VIA WHEELCHAIR, PT ALERT AND ORIENTED X3, AMBULATORY. ORIENTED PT TO ROOM AND CALL LIGHT, DISCUSSED POC, CLEAR LIQUID DIET PROVIDED, ASSESSMENT COMPLETED, CALL LIGHT IN REACH,CONTINUE TO MONITOR.
[2019-08-08 12:45] VITALS: BP 185/91
--- NOTE | 2019-08-08 13:54 | NUR ---
PT ARRIVED WITH ELEVATED BP, SMASH HAND NOTIFIED AND ORDER PLACED. PT MEDICATED PER APR. PRN APRESOLINE ENTERED IF BP MEDS NOT EFFECTIVE. PT AGREES, CALL LIGHT IN REACH,CONTINUE TO MONITOR.
[2019-08-08 15:05] VITALS: BP 157/68
--- NOTE | 2019-08-08 17:44 | NUR ---
PT EATING DINNER, NO SIGNS OF DISTRESS NOTED, RESP EVEN AND UNLABORED. CALL LIGHT IN REACH,CONTINUE TO MONITOR.
--- NOTE | 2019-08-08 19:14 | NUR ---
REPORT FROM RODRIGO PACE. PT NOTED RESTING IN BED. NO APPARENT DISTRESS NOTED. PT MEDICATED PRIOR TO SHIFT REPORT FOR HEADACHE AND NAUSEA. IV SITE APPEARS HEALTHY. DISCUSSED POC. PT VERBALIZED UNDERSTANDING. CALL LIGHT WITHIN REACH. WILL CONTINUE TO MONITOR.
[2019-08-08 19:29] VITALS: BP 150/71
--- NOTE | 2019-08-08 21:25 | NUR ---
POPSICLE PROVIDED UPON REQUEST. PT TOLERATING WELL. DENIES ANY NAUSEA AT THIS TIME.
--- NOTE | 2019-08-08 21:30 | NUR ---
PT OOB TO SHOWER AT THIS TIME.
--- NOTE | 2019-08-08 23:10 | NUR ---
PT RESTING IN BED. NO APPARENT DISTRESS NOTED. DENIES ANY CURRENT WANTS OR NEEDS. CALL LIGHT WITHIN REACH. WILL CONTINUE TO MONITOR.
[2019-08-09] VITALS (7 sets, daily range): BP systolic 116–160; BP diastolic 57–73
--- NOTE | 2019-08-09 03:50 | NUR ---
PT RESTING IN BED WITH EYES CLOSED. NO APPARENT DISTRESS NOTED. INFO ANALYST IN PLACE. CALL LIGHT WITHIN REACH. WILL CONTINUE TO MONITOR.
[2019-08-09 05:11] LABS: HEMATOCRIT 36.8 % (39.0-50.0); HEMOGLOBIN 12.4 g/dl (14.0-18.0); IMMATURE GRANULOCYTES 0.1 % (0.0-5.0); MEAN CELL VOLUME 98.1 fL CALC (80.0-100.0); MEAN CORPUSCULAR HGB 33.1 pG CALC (26.0-32.0); MEAN CORPUSCULAR HGB CONC 33.7 g/dL CAL (32.0-36.0); NEUT# 2.46 thou/uL (1.82-7.42); RED BLOOD COUNT 3.75 mill/uL (4.70-6.10); RED CELL DISTRI WIDTH 14.1 % (11.5-15.5)
[2019-08-09 05:25] LABS: ALKALINE PHOSPHATASE 57 u/l (38-126); ANION GAP 8 (6-22 (CALC)); BILIRUBIN, TOTAL 0.6 mg/dL (0.0-1.4); BUN 15 mg/dL (8-23); BUN/CREATININE RATIO 29 (12-20 (CALC)); CARBON DIOXIDE 24 mmol/l (22-30); CHLORIDE 106 mmol/l (95-108); CREATININE 0.5 mg/dL (0.7-1.3); GFR > 60 ML/MIN (>=60 (CALC)); GFR FOR AFR.AMER. > 60 ML/MIN (>=60 (CALC)); POTASSIUM 4.1 mmol/l (3.5-5.1); SGOT/AST 27 u/l (19-48); SODIUM 135 mmol/l (137-146); TOTAL PROTEIN 5.8 g/dL (6.3-8.2)
--- NOTE | 2019-08-09 07:45 | NUR ---
ASSESSMENT IS COMPLETED: IV SITE IS FREE FROM REDNESS OR EDEMA. HR IS REG, PULSES ARE STRONG X4, ABD IS SOFT WITH HYPOACTIVE BS. BREATH SOUNDS ARE CLEAR, BILATERALLY, TELE MONITOR IN PLACE. PT C/O CONSTIPATION
--- NOTE | 2019-08-09 12:30 | NUR ---
PT HAS BEEN RELAXING AD=ND VISITING WITH FAMILY IN THE ROOM. DR RAMIRES INT O VISIT WITH PT.
--- NOTE | 2019-08-09 16:20 | NUR ---
PT HAS BEEN SITTING IN THE CHAIR. WITH NO DISTRESS NOTED., GAVE MAG CITRATE DUE TO NO BM AT THIS TIME. CONTINUE TO OSBERVE AND MONITOR.
--- NOTE | 2019-08-09 17:28 | NUR ---
RECEIVD A CALL FROM RUPINDER IN RADIOLOGY, T HAS A NEUROSTIMULATOR IN HIS BACK UNABLE TO COMPLETE MRI.
--- NOTE | 2019-08-09 20:35 | NUR ---
SITTIN GUP IN CHAIR ON ROUNDS. RESP NON-LABORED. LUNGS CLEAR. ABD SOFT WITH ACTIVE BOWEL SOUNDS. PATIENT STATES HE HAS HAD A BM SINCE MEDICATED EARLIER FOR CONSTIPATION. TRACE PEDAL EDEMA BILATERALLY. PATIENT HAS FLORA HOSE ON BILATERALLY. SALINE LOCK INTACT IN LW, SITE BENIGN. DISCUSSED PLAN OF CARE. DENIES NEEDS AT THIS TIME. CALL ARREAGA IN REACH.
--- NOTE | 2019-08-09 23:15 | NUR ---
MEDICATED WITH MOTRIN 400 MG PO FOR C/O HEADACHE AND RESTORIL 15 MG PO FOR SLEEP PER PATIENT REQUEST.
[2019-08-10] VITALS (7 sets, daily range): BP systolic 133–179; BP diastolic 61–82
--- NOTE | 2019-08-10 00:20 | NUR ---
RESTING WITHOUT COMPLAINTS. PACED RHYTHM ON MONITOR.
--- NOTE | 2019-08-10 04:16 | NUR ---
PATIENT NPO AFTER MIDINIGHT PER DRS ORDER. TELE PACED RHYTHM. HAS SLEPT WELL.
--- NOTE | 2019-08-10 07:47 | NUR ---
INFORMED PT OF WAITING FOR THE DR TO COME IN AND INFORM OF THE PLAN.
--- NOTE | 2019-08-10 08:35 | NUR ---
ASSESSMENT IS COMPLTED: IV SITE IS FREE FROM REDNESS OR EDEMA. HR IS RE,GPULSES ARE STRONG X4, ABD IS SOFT WITH ACTIVE BS, BREATH SOUNDS ARE CLEAR BILATERALLY, TELE MONITOR IN PLACE. CONTINUE TO OSBERVE AND MONITOR.
--- NOTE | 2019-08-10 12:15 | NUR ---
PT HAS BEEN RELAXING IN BED WAS IN THE ROOM. IV SITE IS FREE FROM REDNESS OR EDEMA.
--- NOTE | 2019-08-10 13:00 | NUR ---
DR URIAS IN TO VISIT WITH PT. AND FAMILY TO DISCUSS THE PROCEDURE TOMORROW.
--- NOTE | 2019-08-10 16:15 | NUR ---
PT IS RELAXING IN BED WITH NO DISTRESS NOTED. IV SITE IS FREE FROM REDNESS OR EDEMA.
[2019-08-11] VITALS (12 sets, daily range): BP systolic 117–175; BP diastolic 65–85
--- NOTE | 2019-08-11 03:04 | NUR ---
PT IN BED WITH EYES CLOSED. NO S/S OF DISTRESS NOTED. RESPIRATION ARE EVEN AND NON LABORED. ON LOVENOX THERAPY WITH NO S/S OF BLEEDING OR HEMORRHAGE. RESIDENT NOTED WITH NON PRODUCTIVE COUGH. RESIDENT AMBULATES TO TOILET WITH NO COMPLICATIONS. GAIT/BALANCE STEADY.RESIDENT IS NPO STATUS FOR SURGERY IN AM.
--- NOTE | 2019-08-11 08:10 | NUR ---
ASSESSMENT IS COMPLETED: IV SITE IS FREE FROM REDNESS OR EDEMA . ABD IS SOFT WITH ACTIVE BS. BREATH SOUNDS ARE CLEAR,BILATERALLY. PULSES ARE STRONG X4, TELE MONITOR IN PLACE. CONTINUE TO OSBERVE AND MONITOR.
--- NOTE | 2019-08-11 11:08 | NUR ---
PT TRANSPORTED TO OR TO HAVE A PROCEDURE , SPOUSE STAYING IN THE ROOM.
--- NOTE | 2019-08-11 12:00 | NUR ---
PT IS IN OR. NO TELE READING. IV SITE IS FREE FROM REDNESS OR EDEMA.
--- NOTE | 2019-08-11 14:45 | NUR ---
PT RETURNED FROM OR VIA BED, WITH DRESSING INTACT. IV SITE IS FREE FROM REDNESS OR EDEMA. SCD IN PLACE. FAMILY IN THE ROOM .DR URIAS IN TO VISIT WITH SPOUSE AND SHOWED PICTURES.
--- NOTE | 2019-08-11 16:22 | NUR ---
PT REQUESTED SOMETHING FOR PAIN AND NAUSEA,. FAMILY IN THE ROOM.
--- NOTE | 2019-08-11 19:48 | NUR ---
PT RESTING IN BED ON HIS SIDE, NO SIGNS OF DISTRESS NOTED, RESP EVEN AND UNLABORED. PT ALERT AND ORIENTED X3, DISCUSSED POC. PT ALERT AND ORIENTED X3, MIDLINE INCISION TO ABD DRESSING CDI. IS AT BEDSIDE, ENCOURAGED IT'S USE, TRAVIS DRAINING TO GRAVITY, SCD'S IN PLACE. ASSESSMENT COMPLETED, CALL LIGHT IN REACH,CONTINUE TO MONITOR.
--- NOTE | 2019-08-11 21:07 | NUR ---
PT C/O PAIN, MEDICATED PER APR. CALL LIGHT IN REACH,CONTINUE TO MONITOR.
[2019-08-12] VITALS (7 sets, daily range): BP systolic 104–172; BP diastolic 46–68
--- NOTE | 2019-08-12 | NUR ---
PT RESTING IN BED WITH EYES CLOSED, NO SIGNS OF DISTRESS NOTED, RESP EVEN AND UNLABORED. CALL LIGHT IN REACH,CONTINUE TO MONITOR.
--- NOTE | 2019-08-12 05:18 | NUR ---
PT MEDICATED FOR PAIN AND REPOSITIONED ON HIS L SIDE. CALL LIGHT IN REACH,CONTINUE TO MONITOR.
[2019-08-12 05:37] LABS: HEMATOCRIT 42.6 % (39.0-50.0); HEMOGLOBIN 14.3 g/dl (14.0-18.0); IMMATURE GRANULOCYTES 0.4 % (0.0-5.0); MEAN CELL VOLUME 98.2 fL CALC (80.0-100.0); MEAN CORPUSCULAR HGB 32.9 pG CALC (26.0-32.0); MEAN CORPUSCULAR HGB CONC 33.6 g/dL CAL (32.0-36.0); NEUT# 5.4 thou/uL (1.82-7.42); RED BLOOD COUNT 4.34 mill/uL (4.70-6.10); RED CELL DISTRI WIDTH 13.7 % (11.5-15.5)
[2019-08-12 05:38] LABS: BUN 13 mg/dL (8-23); BUN/CREATININE RATIO 30 (12-20 (CALC)); CARBON DIOXIDE 23 mmol/l (22-30); CHLORIDE 105 mmol/l (95-108); CREATININE 0.4 mg/dL (0.7-1.3); GFR > 60 ML/MIN (>=60 (CALC)); GFR FOR AFR.AMER. > 60 ML/MIN (>=60 (CALC)); SODIUM 132 mmol/l (137-146)
[2019-08-12 05:47] LABS: ANION GAP 9 (6-22 (CALC)); POTASSIUM 5.2 mmol/l (3.5-5.1)
--- NOTE | 2019-08-12 07:43 | NUR ---
PT SLEEPING IN BED. AWAKENED TO COMPLETE ASSESSMENT. A&O X3. NO DISTRESS NOTED. TRAVIS CATHETER DRAINING VIA GRAVITY WITH CLEAR YELLOW URINE NOTED. ABD MIDLINE DRESSING INTACT WITH SOME SHADOWING PRESENT AROUND UMBILICAL AREA. SCDS IN PLACE. ASSESSMENT COMPLETED. DISCUSSED POC. CALL LIGHT IN REACH. CONTINUE TO MONITOR.
--- NOTE | 2019-08-12 10:31 | NUR ---
DR URIAS AT BEDSIDE DISCUSSING POC. PER ADONAY CONTINUE ICE CHIPS TODA, D/C TRAVIS CATH. NO ORDERS FOR DRESSING CHANGE, KEEP IN PLACE.
--- NOTE | 2019-08-12 13:00 | NUR ---
TRAVIS CATH REMOVED. INTACT UPON REMOVAL.
--- NOTE | 2019-08-12 13:47 | NUR ---
PT SITTING IN CHAIR WATCHING TV. NO NEEDS AT THIS TIME. CALL LIGHT IN REACH. CONTINUE TO MONITOR
--- NOTE | 2019-08-12 19:47 | NUR ---
PT RESTING IN BED STATES HE HAD RETURNED FROM BATHROOM UNABLE TO VOID. BLADDER SCANNED BY DAYSHIFT NURSE PT TO HAVE CATHETER REINSERTED. PT ALERT AND ORIENTED X3, C/O ABD PAIN MEDICATED PER MAR. DISCUSSED POC. DRESSING TO ABD HAS SHADOWING, MARKED AT THIS TIME. SCD'S IN PLACE, IS AT BEDSIDE, ASSESSMENT COMPLETED. CALL LIGHT IN REACH,CONTINUE TO MONITOR.
--- NOTE | 2019-08-12 20:07 | NUR ---
15F TRAVIS CATH PLACED DUE TO BLADDER SCAN SHOWING 832 ML. 800ML OF URINE OUTPUT UPON INSERTION
--- NOTE | 2019-08-12 21:12 | NUR ---
PT RESTING IN BED ON HIS PHONE, NO SIGNS OF DISTRESS NOTED, RESP EVEN AND UNLABORED. TRAVIS DRAINING TO GRAVITY, PT STATES PAIN DOWN 5/10, ICE CHIPS PROVIDED. CALL LIGHT IN REACH,CONTINUE TO MONITOR.
--- NOTE | 2019-08-12 22:00 | NUR ---
PT BP ELEVATED PT MEDICATED WITH IV APRESOLINE BY RN.
--- NOTE | 2019-08-12 22:47 | NUR ---
PT C/O PAIN 09/02, PT MEDICATED FOR PAIN. CALL LIGHT IN REACH,CONTINUE TO MONITOR.
[2019-08-13] VITALS (7 sets, daily range): BP systolic 136–177; BP diastolic 66–80
--- NOTE | 2019-08-13 00:08 | NUR ---
PT VOICES NO NEEDS OR COMPLAINTS AT THIS TIME, CALL LIGHT IN REACH,CONTINUE TO MONITOR.
--- NOTE | 2019-08-13 04:44 | NUR ---
PT RESTING IN BED, NO SIGNS OF DISTRESS NOTED, RESP EVEN AND UNLABORED. PT MEDICATED FOR PAIN, DISCUSSED NEW IV SITE DUE TO BE CHANGED, PT AGREES. 2 ATTEMPTS UNSUCCESSFUL, IV TO LW NO SIGNS OF INFECTION IV INFUSING WELL. CALL LIGHT IN REACH,CONTINUE TO MONITOR.
[2019-08-13 05:57] LABS: IMMATURE GRANULOCYTES 0.3 % (0.0-5.0); MEAN CELL VOLUME 98.1 fL CALC (80.0-100.0); MEAN CORPUSCULAR HGB CONC 33.6 g/dL CAL (32.0-36.0); NEUT# 4.32 thou/uL (1.82-7.42); RED BLOOD COUNT 3.61 mill/uL (4.70-6.10); RED CELL DISTRI WIDTH 14.3 % (11.5-15.5)
[2019-08-13 06:03] LABS: HEMATOCRIT 35.4 % (39.0-50.0); HEMOGLOBIN 11.9 g/dl (14.0-18.0)
[2019-08-13 06:08] LABS: ALBUMIN 2.9 g/dL (3.2-5.0); ALKALINE PHOSPHATASE 59 u/l (38-126); BILIRUBIN, TOTAL 0.7 mg/dL (0.0-1.4); BUN 14 mg/dL (8-23); BUN/CREATININE RATIO 24 (12-20 (CALC)); CARBON DIOXIDE 25 mmol/l (22-30); CHLORIDE 104 mmol/l (95-108); CREATININE 0.6 mg/dL (0.7-1.3); GFR > 60 ML/MIN (>=60 (CALC)); GFR FOR AFR.AMER. > 60 ML/MIN (>=60 (CALC)); SODIUM 135 mmol/l (137-146); TOTAL PROTEIN 5.5 g/dL (6.3-8.2)
[2019-08-13 06:09] LABS: ANION GAP 10 (6-22 (CALC)); POTASSIUM 3.6 mmol/l (3.5-5.1); SGOT/AST 57 u/l (19-48)
--- NOTE | 2019-08-13 07:16 | NUR ---
PT LAYING IN BED. A&O X3. NO DISTRESS NOTED. ABD DRESSING IN PLACE WITH NO CHANGES IN THE AMOUNT OF SHADOWING COMPARED TO YESTERDAY. PT DENIES ANY PAIN AT THIS TIME. TRAVIS CATHETER IN PLACE DRAINING VIA GRAVITY WITH CLEAR YELLOW URINE NOTED. EDEMA NOTED TO BILAT ARMS. SCDS IN PLACE. IS AT BEDSIDE. ASSESSMENT COMPLETED. DISCUSSED POC. CALL LIGHT IN REACH. CONTINUE TO MONITOR.
--- NOTE | 2019-08-13 07:39 | NUR ---
MANUAL BP OBTAINED 160/70 WITH HR OF 76. H ESA MARSHALL NOTIFIED TO GIVE APRESOLINE IV.
--- NOTE | 2019-08-13 10:30 | NUR ---
PT SITTING IN RECLINER WITH AT SIDE. PT C/O OF NAUSEA AND PAIN. WILL REASSESS
--- NOTE | 2019-08-13 14:30 | NUR ---
IV REMOVED AND REPLACED WITH A #22 RT HAND. INTACT UPON REMOVAL
--- NOTE | 2019-08-13 15:47 | NUR ---
BP RE-EVALUATED 169/80. DR LEE NOTIFIED
--- NOTE | 2019-08-13 16:36 | NUR ---
ORDERS REC FOR LABETOLOL 10 MG IV Q6 PRN FOR SYSTOLIC BP OF >160. ORDER FAXED TO PHARMACY
--- NOTE | 2019-08-13 16:45 | NUR ---
CLARIFICATION NEEDED FOR LABETALOL PER MARBELLA IN PHARMACY.
--- NOTE | 2019-08-13 17:47 | NUR ---
CLARIFICATION ; PER ROSA OKAY TO KEEP BOTH APRESOLINE AND LABETALOL. ORDER OF CLARIFICATION SENT TO
--- NOTE | 2019-08-13 20:15 | NUR ---
UPON ENTERING ROOM PT SITTING UP IN CHAIR. REQUEST ASSISTANCE TO RETURN TO BED AND PRN ANALGESIC. PT ASSISTED BACK TO BED WITHOUT INCIDENT. MEDICATED W/ DILAUDID, SEE MAR. PHYSICAL ASSEMENT COMPLETE. PLAN OF CARE REVIEWED. PT VERBALIZES UNDERSTANDING AND DENIES QUESTION. DENIES FURTHER NEEDS @ THIS TIME. ITEMS WITHIN REACH. BED LOCKED IN LOW POSITION W/ BEDRAILS UP X2. CALL ARREAGA WITHIN REACH, AGREES TO CALL PRN.
[2019-08-14] VITALS (7 sets, daily range): BP systolic 116–190; BP diastolic 58–87
--- NOTE | 2019-08-14 00:15 | NUR ---
PT SLEEPING, APPEARS COMFORTABLE AND IN NO DISTRESS. RESPIRATIONS REGULAR AND UNLABORED. CALL ARREAGA REMAINS WITHIN REACH.
--- NOTE | 2019-08-14 04:05 | NUR ---
PT MEDICATED FOR ABD PAIN 09/02, SEE MAR. ASSISTED TO REPOSITION FOR COMFORT.
[2019-08-14 05:08] LABS: HEMATOCRIT 37.8 % (39.0-50.0); HEMOGLOBIN 12.9 g/dl (14.0-18.0); MEAN CELL VOLUME 97.7 fL CALC (80.0-100.0); MEAN CORPUSCULAR HGB 33.3 pG CALC (26.0-32.0); MEAN CORPUSCULAR HGB CONC 34.1 g/dL CAL (32.0-36.0); RED BLOOD COUNT 3.87 mill/uL (4.70-6.10); RED CELL DISTRI WIDTH 14.2 % (11.5-15.5)
[2019-08-14 05:42] LABS: ANION GAP 8 (6-22 (CALC)); BUN 12 mg/dL (8-23); BUN/CREATININE RATIO 22 (12-20 (CALC)); CARBON DIOXIDE 26 mmol/l (22-30); CHLORIDE 104 mmol/l (95-108); CREATININE 0.5 mg/dL (0.7-1.3); GFR > 60 ML/MIN (>=60 (CALC)); GFR FOR AFR.AMER. > 60 ML/MIN (>=60 (CALC)); POTASSIUM 3.6 mmol/l (3.5-5.1); SODIUM 134 mmol/l (137-146)
--- NOTE | 2019-08-14 07:49 | NUR ---
PT RESTING IN BED, NO SIGNS OF DISTRESS NOTED, RESP EVEN AND UNLABORED. PT ALERT AND ORIENTED X3, DISCUSSED POC, PT ADVANCED TO CLEAR LIQUID TOLERATING WELL. ABD PAD TO ABD CDI, TRAVIS DRAINING TO GRAVITY, SCD'S IN PLACE. ASSESSMENT COMPLETED, CALL LIGHT IN REACH,CONTINUE TO MONITOR.
--- NOTE | 2019-08-14 11:23 | NUR ---
IV SL TO ASSIST PT IN SHOWER, CONTINUE TO MONITOR.
--- NOTE | 2019-08-14 12:07 | NUR ---
PT OUT OF SHOWER AND SITTING IN RECLINER AT BEDSIDE, WITH PT. CALL LIGHT IN REACH,CONTINUE TO MONITOR.
--- NOTE | 2019-08-14 13:30 | NUR ---
PT AMBULATED IN ROOM WITH WALKER, TOLERATED WELL. PT RETURNED TO RECLINER, CALL LIGHT IN REACH,CONTINUE TO MONITOR.
--- NOTE | 2019-08-14 16:47 | NUR ---
PT AMBULATED HALLWAY WITH WALKER ASSISTED BY DRYWALL HANGER FRAMER AND , PT TOLERATED WELL. NO SIGNS OF DISTRESS NOTED, RESP EVEN AND UNLABORED. RETURNED PT TO RECLINER, PT MEDICATED FOR PAIN AND NAUSEA. CALL LIGHT IN REACH,CONTINUE TO MONITOR.
--- NOTE | 2019-08-14 21:40 | NUR ---
PHYSICAL ASSESMENT COMPLETE. VS ASSESSED. PLAN OF CARE REVIEWED. PT VERBALIZES UNDERSTANDING, DENIES QUESTIONS. PT DENIES NEEDS AT THIS TIME. ITEMS WITHIN REACH. BED LOCKED IN LOW POSITION W/ BEDRAILS UP X2. CALL ARREAGA WITHIN REACH, AGREES TO CALL PRN.
--- NOTE | 2019-08-15 00:50 | NUR ---
PT APPEARS TO BE SLEEPING COMFORTABLY. NO APPARENT DISTRESS. RESPIRATIONS REGULAR AND UNLABORED. CALL ARREAGA REMAINS WITHIN REACH.
[2019-08-15 04:00] VITALS: BP 151/83
[2019-08-15 05:13] LABS: HEMATOCRIT 39.9 % (39.0-50.0); HEMOGLOBIN 13.5 g/dl (14.0-18.0); IMMATURE GRANULOCYTES 0.1 % (0.0-5.0); MEAN CELL VOLUME 97.3 fL CALC (80.0-100.0); MEAN CORPUSCULAR HGB 32.9 pG CALC (26.0-32.0); MEAN CORPUSCULAR HGB CONC 33.8 g/dL CAL (32.0-36.0); NEUT# 2.77 thou/uL (1.82-7.42); RED BLOOD COUNT 4.1 mill/uL (4.70-6.10); RED CELL DISTRI WIDTH 14.2 % (11.5-15.5)
[2019-08-15 05:49] LABS: ANION GAP 9 (6-22 (CALC)); BUN 8 mg/dL (8-23); BUN/CREATININE RATIO 17 (12-20 (CALC)); CARBON DIOXIDE 26 mmol/l (22-30); CHLORIDE 104 mmol/l (95-108); CREATININE 0.4 mg/dL (0.7-1.3); GFR > 60 ML/MIN (>=60 (CALC)); GFR FOR AFR.AMER. > 60 ML/MIN (>=60 (CALC)); POTASSIUM 3.5 mmol/l (3.5-5.1); SODIUM 135 mmol/l (137-146)
[2019-08-15 07:23] VITALS: BP 169/84
--- NOTE | 2019-08-15 07:23 | NUR ---
PT RESTING IN BED, NO SIGNS OF DISTRESS NOTED, RESP EVEN AND UNLABORED. PT ALERT AND ORIENTED X3, PT VOICES NO NEEDS OR COMPLAINTS AT THIS TIME, DISCUSSED POC, DRESSING TO ABD CDI. TRAVIS DRAINGING TO GRAVITY, ASSESSMENT COMPLETED, CALL LIGHT IN REACH,CONTINUE TO MONITOR.
--- NOTE | 2019-08-15 09:10 | NUR ---
PT MEDICATED FOR PAIN, ASSISTED PT TO BATHROOM TO ATTEMPT BM. ORDERS TO DC TRAVIS, DISCUSSED WITH PT, PT AGREES. 10CC OF WATER REMOVED FROM BALLOON, CATHETER REMOVED, INTACT, PT TOLERATED WELL. INSTRUCTED PT TO PULL STRING FOR ASSISTANCE. CALL LIGHT IN REACH,CONTINUE TO MONITOR.
--- NOTE | 2019-08-15 10:41 | NUR ---
PT SITTING IN RECLINER AT BEDSIDE, WITH PT. DISCUSSED SUPPOSITORY AND MIRALAX, PT AGREES. PT TOLERATED WELL. ORDERS TO DC TELE. CALL LIGHT IN REACH,CONTINUE TO MONITOR.
[2019-08-15 11:24] VITALS: BP 128/73
--- NOTE | 2019-08-15 11:56 | NUR ---
PT SITTING IN RECLINER EATING LUNCH, NO SIGNS OF DISTRESS NOTED, RESP EVEN AND UNLABORED. PT HAS NOT FELT THE URGE TO VOID OR HAVE A BM. CALL LIGHT IN REACH, AT BEDSIDE, CONTINUE TO MONITOR.
--- NOTE | 2019-08-15 12:50 | NUR ---
PT AMBULATING IN HALLWAY WITH ASSISTED BY WALKER. PT TOLERATING WELL. CONTINUE TO MONITOR.
--- NOTE | 2019-08-15 14:37 | NUR ---
TO NURSES STATION, PT VOIDED AND PASSED A LOT OF GAS, NOTED CLEAR YELLOW URINE IN TOILET. PT RESTING IN RECLINER. WORM PACKER TO BRING MOM AND PRUNE JUICE. CALL LIGHT IN REACH,CONTINUE TO MONITOR.
[2019-08-15 15:40] VITALS: BP 142/72
[2019-08-15 18:45] VITALS: BP 158/79
--- NOTE | 2019-08-15 19:00 | NUR ---
RECEIVED REPORT FROM NURSE WALLACE, PATIENT CURRENTLY RESTING IN BED, EYES CLOSED, CALL LIGHT AT REACH.
--- NOTE | 2019-08-15 21:19 | NUR ---
ASSESSMENT DONE, NOTED REDNESS ON THE ELECTRODE PLACEMENT SPOTS, C/O ITCHING ON THE SPOT, NOTIFIED DR. CARR WITH ORDERS MADE.
[2019-08-15 23:25] VITALS: BP 132/66
--- NOTE | 2019-08-16 00:36 | NUR ---
PATIENT APPEARS TO BE SLEEPING WITH EYES CLOSED, BREATHHING EVEN AND UNLABORED CALL LIGHT AT REACH.
[2019-08-16 03:30] VITALS: BP 130/68
--- NOTE | 2019-08-16 05:20 | NUR ---
PATIENT APPEARS TO BE SLEEPING WITH EYES CLOSED BREATHING EVEN AND UNLABORED CALL LIGHT AT REACH.
--- NOTE | 2019-08-16 06:11 | NUR ---
NEW DRESSING APPLIED TO MIDLINE INCISION, PATIENT TOLERATED, CALL LIGHT AT REACH.
[2019-08-16 08:00] VITALS: BP 146/80
--- NOTE | 2019-08-16 09:52 | NUR ---
PT RESTING IN BED, NO SIGNS OF DISTRESS NOTED, RESP EVEN AND UNLABORED. PT ALERT AND ORIENTED X3, PT VOICES NO NEEDS OR COMPLAINTS AT THIS TIME, DRESSING TO ABD CDI. ASSESSMENT COMPLETED, CALL LIGHT IN REACH,CONTINUE TO MONITOR.
[2019-08-16 16:19] VITALS: BP 133/69
--- NOTE | 2019-08-16 19:00 | NUR ---
RECEIVED REPORT FROM NURSE HALE PATIENT SITTING ON RECLINER, APPEARS TO BE SLEEPING BREATHING EVEN AND UNLABORED CALL LIGHT AT REACH.
--- NOTE | 2019-08-16 19:09 | NUR ---
PT APPEARS TO BE SLEEPING COMFORTABLY. NO APPARENT DISTRESS. RESPIRATIONS REGULAR AND UNLABORED. CALL ARREAGA REMAINS WITHIN REACH.
[2019-08-16 19:33] VITALS: BP 132/54
--- NOTE | 2019-08-16 20:15 | NUR ---
PATIENT ALERT ORIENTED, WITH ONGOING IV LR @ 75CC/HR INFUSING WELL ON LEFT HAND LBM 08/15 SMALL LIQUID, DENIES PAIN OR DISCOMFORTS AT THIS TIME, DRESSING ON ABDOMINAL INCISION CDI, CALL LIGHT AT REACH..
--- NOTE | 2019-08-17 01:04 | NUR ---
PATIENT APPEARS TO BE SLEEPING WITH EYES CLOSED, BREATHING EVEN AND UNLABORED CALL LIGHT AT REACH.
--- NOTE | 2019-08-17 04:18 | NUR ---
PATIENT APPEARS TO BE SLEEPING WITH EYES CLOSED, BREATHING EVEN AND UNLABORED, CALL LIGHT ART REACH.
[2019-08-17 04:22] VITALS: BP 130/59
--- NOTE | 2019-08-17 06:19 | NUR ---
INCISION CLEAN AND DRY NO DRAINAGE NOTED AT THIS TIME, DENIES PAIN, PATIENT OFFERED MILK OF MAGNESIA, REFUSED.
--- NOTE | 2019-08-17 09:15 | NUR ---
patient is alert and oriented; laying in bed; incision is clean and dry, GEOVANI; no signs or symptoms of distress noted.
[2019-08-17] MEDS ORDERED: LORTAB5 PO (11:31)
--- NOTE | 2019-08-17 15:18 | NUR ---
patient alert and oriented x 3, ambulatory, 0/10 c/o pain; cargiver at the bedside; incision is clean, dry and intact with jaciel; no signs or symptoms of distress noted; IV discontinued with catheter intact; patient verbalized understanding of discharge instructions.
== END 2019-08-17 15:15 | disposition home or self-care (01) | DRG 983 ==
LOC: ED 07:14 → ED-I 11:09 → ED 11:13 → ED-I 11:14 → MS2 11:14
PROVIDERS: Nurse Practitioner Family; Surgery; ADMIT Internal Medicine; ATTEND Internal Medicine
PROC: 0DBV0ZX Excision of Mesentery, Open Approach, Diagnostic (ICD-10-PCS; principal; 2019-08-11)
PROC: 0DB80ZX Excision of Small Intestine, Open Approach, Diagnostic (ICD-10-PCS; 2019-08-11)
PROC: 0T9B70Z Drainage of Bladder with Drainage Device, Via Natural or Artificial Opening (ICD-10-PCS; 2019-08-12)
DX: M79.81 Nontraumatic hematoma of soft tissue (principal); I10 Essential (primary) hypertension; K59.00 Constipation, unspecified; M06.9 Rheumatoid arthritis, unspecified; E03.9 Hypothyroidism, unspecified; G43.909 Migraine, unspecified, not intractable, without status migrainosus; N40.1 Benign prostatic hyperplasia with lower urinary tract symptoms; R33.8 Other retention of urine; Z96.82 Presence of neurostimulator; Z86.711 Personal history of pulmonary embolism; Z90.81 Acquired absence of spleen; Z20.828 Contact with and (suspected) exposure to other viral communicable diseases
CPT/HCPCS: G0378; J0131; J1100; J2710; Q9967; S0164

== ENCOUNTER 2020-06-22 20:10 | Emergency (ER) | payer MEDICARE, OTHER ==
[~2020-06-22 20:10] MED LIST changes: +KETOROLAC10 MG PO; +LORTAB5 PO; +POTASSIUM CHLO10 MEQ PO; +TOPAMAX25 MG PO; +VALPROIC ACD250 M3 PO
[2020-06-22] MEDS ORDERED: TRAMADOL HYDROC50 MG PO (22:53)
[2020-06-22 23:06] VITALS: BP 180/76
[2020-06-22] MEDS ORDERED: AZELASTINE HYDR1 SPR NAB (23:24)
[2020-06-22] MEDS ORDERED: BUMETANIDE1 MG PO (23:25)
[2020-06-22] MEDS ORDERED: CARVEDILOL3.125 MG PO (23:25)
[2020-06-22] MEDS ORDERED: COLCHICINE0.6 M2 PO (23:26)
[2020-06-22] MEDS ORDERED: COLESTIPOL1 GM PO (23:28)
[2020-06-22] MEDS ORDERED: DOXAZOSIN4 MG PO (23:29)
[2020-06-22] MEDS ORDERED: CYCLOBENZAPRINE10 MG PO (23:29)
[2020-06-22] MEDS ORDERED: LEVOTHYROXIN50 MCG PO (23:30)
[2020-06-22] MEDS ORDERED: COZAAR100 MG PO (23:31)
[2020-06-22] MEDS ORDERED: PROTONIX40 M2 PO (23:31)
[2020-06-22] MEDS ORDERED: PRAVASTATIN40 MG PO (23:33)
[2020-06-22] MEDS ORDERED: SUCRALFATE1 GM PO (23:34)
[2020-06-22] MEDS ORDERED: PHENERGAN25 MG/TAB PO (23:34)
[2020-06-22] MEDS ORDERED: SYMBICORT1 AE1 IN (23:35)
[2020-06-22] MEDS ORDERED: TEMAZEPAM15 MG PO (23:36)
[2020-06-22] MEDS ORDERED: TRAMADOL HCL50 MG PO (23:37)
[2020-06-22] MEDS ORDERED: VITAMIN D50000 UNIT PO (23:38)
== END 2020-06-22 23:40 | disposition home or self-care (01) ==
LOC: ED 20:10
DX: S00.01XA Abrasion of scalp, initial encounter (principal); T14.8XXA Other injury of unspecified body region, initial encounter; I10 Essential (primary) hypertension; W17.89XA Other fall from one level to another, initial encounter; Y92.009 Unspecified place in unspecified non-institutional (private) residence as the place of occurrence of the external cause; Z96.82 Presence of neurostimulator

== ENCOUNTER 2021-08-28 15:38 | Observation (INO) | payer MEDICARE, OTHER ==
[~2021-08-28] VITALS: Ht 185.4 cm; Wt 75.4 kg
[~2021-08-28 15:38] MED LIST changes: +AZELASTINE HYDR1 SPR NAB; +CARVEDILOL3.125 MG PO; +COLESTIPOL1 GM PO; +COZAAR100 MG PO; +CYCLOBENZAPRINE10 MG PO; +PHENERGAN25 MG/TAB PO; +PRAVASTATIN40 MG PO; +SUCRALFATE1 GM PO; +TEMAZEPAM15 MG PO; +TRAMADOL HCL50 MG PO; +VITAMIN D5000 UNI1
--- NOTE | 2021-08-28 15:45 | NUR ---
PT AMB TO ROOM WITH STEADY GAIT
[2021-08-28 16:12] LABS: HEMATOCRIT 41.1 % (39.0-50.0); HEMOGLOBIN 13.6 g/dl (14.0-18.0); IMMATURE GRANULOCYTES 0.1 % (0.0-5.0); MEAN CELL VOLUME 105.9 fL CALC (80.0-100.0); MEAN CORPUSCULAR HGB 35.1 pG CALC (26.0-32.0); MEAN CORPUSCULAR HGB CONC 33.1 g/dL CAL (32.0-36.0); NEUT# 4.47 thou/uL (1.82-7.42); RED BLOOD COUNT 3.88 mill/uL (4.70-6.10); RED CELL DISTRI WIDTH 12.3 % (11.5-15.5)
[2021-08-28 16:27] LABS: ALBUMIN 3.9 g/dL (3.2-5.0); ANION GAP 13 (6-22 (CALC)); BUN 13 mg/dL (8-23); BUN/CREATININE RATIO 22 (12-20 (CALC)); CARBON DIOXIDE 26 mmol/l (22-30); CHLORIDE 102 mmol/l (95-108); CREATININE 0.6 mg/dL (0.7-1.3); GFR FOR AFR.AMER. > 60 ML/MIN (>=60 (CALC)); GFR OTHER RACES > 60 ML/MIN (>=60 (CALC)); POTASSIUM 3.5 mmol/l (3.5-5.1); SGOT/AST 38 u/l (19-48); SODIUM 137 mmol/l (137-146)
[2021-08-28 16:33] LABS: ALKALINE PHOSPHATASE 106 u/l (38-126); BILIRUBIN, TOTAL 0.4 mg/dL (0.0-1.4)
[2021-08-28] MEDS ORDERED: SULFAMETHOXAZOL1 TA1 PO (18:31)
[2021-08-28] MEDS ORDERED: ARNUITY EL50 MCG/ACT (18:31)
[2021-08-28] MEDS ORDERED: HYDROMORPHON4 MG PO (18:32)
--- NOTE | 2021-08-28 18:45 | NUR ---
PATIENT DOSED WITH MEDS FOR IV CONTRAST ADMINISTRATION.
--- NOTE | 2021-08-28 19:20 | NUR ---
TOOK OVER PT CARE AT SHIFT CHANGE. PT COMFORTABLE AND RESTING IN ROOM WITH FAMILY AT BEDSIDE. ADJUSTED PT BED, PRE MEDS HAVE BEEN GIVEN, AWAITING CTA AT 1945.
--- NOTE | 2021-08-28 22:00 | NUR ---
ARRIVED VIA WHEELCHAIR ACCOMPANIED BY NURSE ALERT AND ORIENTED X 4. DENIES PAIN AT HIS TIME PLEASANT AND COOPERATIVE. NO SOB NOTED SKIN WARM AND DRY
[2021-08-28 22:08] VITALS: BP 161/73
--- NOTE | 2021-08-29 00:17 | NUR ---
NOURISHMENT PROVIDED TOLERATED WELL. NO C/O PAIN OR DISCOMFORT STRUCTURAL IRON ERECTOR SHOW SINUS RHYTHM WITH FIRST DEGREE AV BLOCK LEFT BUNDL BRANCH BLOCK.
[2021-08-29 00:28] VITALS: BP 147/75
--- NOTE | 2021-08-29 04:06 | NUR ---
RESTING QUIETLY IN BED WITH EYES CLOSED NO ACUTE DISTRESS NOTED RESPIRATIONS EVEN AND UNLABORED. BAKERY DECORATOR SHOW SINUS RYTHM WITH 1ST DEGREE AVB BBB
[2021-08-29 04:54] VITALS: BP 168/83
[2021-08-29 05:53] LABS: HEMATOCRIT 37.5 % (39.0-50.0); HEMOGLOBIN 12.9 g/dl (14.0-18.0); MEAN CELL VOLUME 99.7 fL CALC (80.0-100.0); MEAN CORPUSCULAR HGB 34.3 pG CALC (26.0-32.0); MEAN CORPUSCULAR HGB CONC 34.4 g/dL CAL (32.0-36.0); RED BLOOD COUNT 3.76 mill/uL (4.70-6.10); RED CELL DISTRI WIDTH 11.8 % (11.5-15.5)
[2021-08-29 06:10] LABS: ANION GAP 10 (6-22 (CALC)); BUN 15 mg/dL (8-23); BUN/CREATININE RATIO 31 (12-20 (CALC)); CALCULATED LDLCHOLESTEROL 87 mg/dL (62-129 (CALC)); CARBON DIOXIDE 24 mmol/l (22-30); CHLORIDE 100 mmol/l (95-108); CHOLESTEROL HDL RATIO 2.6 (<4.4 (CALC)); CREATININE 0.5 mg/dL (0.7-1.3); GFR FOR AFR.AMER. > 60 ML/MIN (>=60 (CALC)); GFR OTHER RACES > 60 ML/MIN (>=60 (CALC)); HDL CHOLESTEROL 67 mg/dL (>=40); POTASSIUM 4.1 mmol/l (3.5-5.1); TOTAL CHOLESTEROL 174 mg/dl (0-199); TOTAL TRIGLYCERIDES 99 mg/dl (30-149); VLDL CHOLESTROL 20 mg/dl (0-38 (CALC))
[2021-08-29 06:11] LABS: SODIUM 130 mmol/l (137-146)
--- NOTE | 2021-08-29 06:36 | NUR ---
RESTING QUIETLY IN BED NO ACUTE DISTRESS NOTED. RESPIRATIONS EVEN AND UNLABORED
[2021-08-29 06:50] VITALS: BP 137/74
--- NOTE | 2021-08-29 08:00 | NUR ---
GOT REPORT FROM BOTTOM POLISHER NURSE. PATIENT IS AOX3. PATIENT STATES THAT HE IS NOT FEELING WELL AND COULD NOT FINISH HIS BREAKFAST THIS AM. PATIENT STATES THAT HE HAS A LITTLE NAUSEA. NO NAUSEA MED ON APR. ADVISED I WILL SPEAK TO MD TO GET SOMETHING TO COVER THAT. PATIENT VERBALIZED UNDERSTANDING. CALL LIGHT AND BEDSIDE TABLE WITH IN REACH. ADVISED TO CALL IF HE NEEDS ANYTHING.
[2021-08-29 11:03] VITALS: BP 137/69
--- NOTE | 2021-08-29 12:00 | NUR ---
PATIENT C/O NAUSEA, MEDICATION GIVEN. SPOUSE AT BEDSIDE. PATIENT STATES THAT MD STATED THAT HE WILL BE DISCHARGED TODAY. WOULD LIKE TO LEAVE SOON HE CAN. CALL LIGHT AND BEDSIDE TABLE WITH IN REACH. ADVISED TO CALL IF HE NEEDED ANYTHING IN THE MEAN TIME.
[2021-08-29] MEDS ORDERED: LEVAQUIN750 M1 PO (12:59)
--- NOTE | 2021-08-29 13:48 | NUR ---
Discharge instructions given. Patient verbalizes understanding of same. Discharged in stable condition via Wheelchair to Home with spouse. All belongings sent with pt.
== END 2021-08-29 13:48 | disposition home or self-care (01) ==
LOC: ED 15:38 → ED-I 16:29 → ED 16:29 → ED-I 16:30 → ED 20:32 → MS2 20:33
PROVIDERS: Family Medicine; ADMIT Hospitalist; ATTEND Hospitalist
DX: J18.9 Pneumonia, unspecified organism (principal); I11.0 Hypertensive heart disease with heart failure; I50.9 Heart failure, unspecified; I25.10 Atherosclerotic heart disease of native coronary artery without angina pectoris; I51.81 Takotsubo syndrome; J45.909 Unspecified asthma, uncomplicated; M06.9 Rheumatoid arthritis, unspecified; E03.9 Hypothyroidism, unspecified; Z86.711 Personal history of pulmonary embolism; Z20.822 Contact with and (suspected) exposure to COVID-19
CPT/HCPCS: J1650; Q9967